=== PATIENT | male | born 1950 | race Caucasian/White ===

== ENCOUNTER 2019-02-02 13:45 | Inpatient (IN) ==
[2019-02-02] MEDS ORDERED: Td (TENIVAC) Vaccine 0.5 ML VIAL IM ONE (14:59)
[2019-02-02] MEDS ORDERED: Acetaminophen 325 MG TABLET PO ONE (14:59)
[2019-02-02] MEDS ORDERED: Ampicillin/Sulbactam 3,000 MG in D5% in Water (Mini-Bag+) 100 ML IVPB ONE (14:59)
[2019-02-02] MEDS ORDERED: 0.9 % Sodium Chloride 1,000 ML IVC ONE (14:59)
[2019-02-02] MEDS ORDERED: Vancomycin 1,000 MG VIAL IVPB ONE (14:59)
--- NOTE | 2019-02-02 15:09 | Emergency Department Note ---
Disposition Clinical Impression: Cellulitis Disposition: Home, Self-Care Condition: Good Time of Disposition: 16:07 Skin/Abscess/FB HPI Chief complaint: ED Skin/Abscess/Foreign Body Stated complaint: infection to left arm Time Seen by Provider: 02/02/19 15:00 Source: patient Mode of arrival: ambulatory Limitations: no limitations Nursing Notes Reviewed: Yes Vital Signs Reviewed: Yes HPI Narrative: 68-year-old male brought in today by family after going to urgent care we told to come up here for his left arm cellulitis. His left forearm. He states tonight every 3 or 4 days. States it is getting worse pain rise and spreading. He states is a lot more swollen today. He states it feels very hot locally but he has not had fevers or chills and his body. He states he has an appointment to see his doctor on Thursday but he did not think he can wait that long. His numbness or tingling in his hand. He still able to use his left hand. He states that he is not really sure where it started originally. He does not neena mber any trauma or scratching of the area. He is not a diabetic. Patient is on Eliquis for A. fib. Pt Subjective Complaint: abscess/boil Home Medications Medication Instructions Recorded Confirmed Apixaban [Eliquis] 5 mg PO BID 02/02/19 02/02/19 Atenolol 100 mg PO DAILY 02/02/19 02/02/19 Atorvastatin Calcium [Lipitor] 80 mg PO HS 02/02/19 02/02/19 Lisinopril/Hydrochlorothiazide 1 each PO DAILY 02/02/19 02/02/19 [Zestoretic 10-12.5 mg Tablet] Loratadine [Claritin] 10 mg PO DAILY 02/02/19 02/02/19 levETIRAcetam [Roweepra Xr] 500 mg PO BID 02/02/19 02/02/19 Allergies Allergy/AdvReac Type Severity Reaction Status Date / Time No Known Allergies Allergy Unverified 10/26/18 11:28 Review of Systems: All other systems are negative except as noted/marked Chart generated with voice recognition software Nursing notes reviewed Old records reviewed Past Medical History - Past Medical History Attestation: Yes The following information was validated with the patient. Source: patient, old records reviewed, nursing notes reviewed Medical history: Reports: atrial fibrillation, cancer, hyperlipidemia, hypertension, other Psychiatric history: Reports: no psych history - Social History Smoking Status: Former smoker Smokeless Tobacco Status: No Alcohol use: Reports: rarely Drug use: Reports: none Physical Exam - General Limitations: no limitations General appearance: alert - Head Head exam: atraumatic, normocephalic, normal inspection - Eye Eye exam: Present: normal appearance, PERRL, EOMI - ENT ENT exam: normal exam, normal oropharynx, mucous membranes moist - Neck Neck exam: Present: normal inspection, full ROM, trachea midline - Chest Chest inspection: Present: normal inspection, symmetric chest wall rise - Respiratory Respiratory exam: Present: normal lung sounds bilaterally - Cardiovascular Cardiovascular exam: Present: regular rate, normal rhythm, normal heart sounds - Expanded Upper Extremity Exam Shoulder exam: Present: normal inspection, full ROM Arm exam: Present: normal inspection, full ROM Elbow exam: Present: full ROM, tenderness, erythema. Absent: crepitus Forearm/Wrist exam: Present: full ROM, swelling, abrasion, erythema, other (enduration over lateral arm, some oozing of blood, no purulent drainage). Absent: crepitus, tenderness over anatomical snuff box, pain with axial thumb loading Neuromotor exam: Normal: wrist extension, thumb opposition, thumb IP flexion, thumb adduction, fingers 2-5 abduction Neurosensory exam: Normal: radial nerve, ulnar nerve Vascular exam: Normal: capillary refill - Neurological Exam Neurological exam: Present: alert, oriented X3, CN II-XII intact - Psychiatric Psychiatric exam: Present: normal affect, normal mood - Skin Skin exam: Present: warm, dry, intact Course Vital Signs Temperature 98.3 F 02/02/19 13:46 Pulse Rate 91 02/02/19 13:46 Respiratory Rate 17 02/02/19 13:46 Blood Pressure 109/78 02/02/19 13:46 O2 Sat by Pulse Oximetry 95 02/02/19 13:46 Temperature 98.3 F 02/02/19 13:46 Pulse Rate 87 02/02/19 15:48 Respiratory Rate 18 02/02/19 15:48 Blood Pressure 117/80 02/02/19 15:48 O2 Sat by Pulse Oximetry 98 02/02/19 15:48 Oxygen Delivery Oxygen Delivery Room Air Skin/Abscess/Foreign Body - MDM Narrative Medical decision making narrative: 68-year-old male who presents today with left arm swelling induration and warmth for the last 3-4 days. Is very concerning as follows arm. We started early with antibiotic therapy. I did think that he would benefit from being in the hospital on IV antibiotic is given the induration. I did not appreciate any fluctuance at this time therefore I did not drain any abscess x-rays did not show any gas and no concern for neck fashion at this time. Certainly after antibiotics for a while he may improve and could go home. He is to keep the arm elevated we started this process in the ER. I did noted patient notify the patient's at his request and she is aware that he will be admitted tonight. Dr. Carnes agrees with the recommendation for admission. - Medical Records Medical records reviewed: Yes I reviewed the patient's medical records. - Lab Data Lab results reviewed: Yes I reviewed the patient's lab results. Result diagrams: 02/02/19 15:18 02/02/19 15:18 Lab Results 02/02/19 02/02/19 02/02/19 Range/Units 15:18 15:18 15:18 WBC 16.3 H (4.3-11.1) K/mcL RBC 4.91 (4.19-5.50) M/mcL Hgb 14.2 (12.9-16.9) g/dL Hct 42.0 (37.5-50.1) % MCV 85.5 (83.0-100.0) fL MCH 28.9 (28.0-33.3) pg MCHC 33.8 (31.6-35.5) g/dL RDW 13.5 (11.5-14.5) % Plt Count 317 (140-400) K/mcL MPV 10.4 (9.4-12.4) fL Immature Gran % 0.7 (0-4) % Seg Neutrophils % 81.5 % Lymphocytes % 8.7 % Monocytes % 7.5 % Eosinophils % 1.0 % Basophils % 0.6 % Neutrophils # 13.3 H (1.6-8.9) K/mcL Lymphocytes # 1.4 (0.6-4.6) K/mcL Monocytes # 1.2 (0.0-1.3) K/mcL Eosinophils # 0.2 (0.0-0.6) K/mcL Basophils # 0.1 (0.0-0.2) K/mcL Sodium 138 (136-145) mEq/L Potassium 4.1 (3.5-5.1) mEq/L Chloride 103 (98-107) mEq/L Carbon Dioxide 27 (23-29) mEq/L BUN 22 (8-23) mg/dL Creatinine 0.92 (0.70-1.30) mg/dL Est GFR ( Amer) > 60 (> 60) Est GFR (Non-Af Amer) > 60 (> 60) BUN/Creatinine Ratio 24 (6-26) Glucose 119 H (70-105) mg/dL Calculated Osmolality 290 (280-300) Lactic Acid 1.0 (0.5-2.2) mmol/L Calcium 10.2 (8.6-10.3) mg/dL - Radiology Data Radiology results reviewed: Yes I reviewed the patient's radiology results. EXAMINATION: 3 XRAY VIEWS OF THE LEFT ELBOW; 2 XRAY VIEWS OF THE LEFT FOREARM 02/02/2019 3:47 pm COMPARISON: None. HISTORY: ORDERING SYSTEM PROVIDED HISTORY: abscess r/o free air FINDINGS: No acute fracture or dislocation noted. Induration of the subcutaneous tissues of the forearm and elbow is noted with mild soft tissue swelling. No radiopaque foreign body or subcutaneous emphysema is noted. Osseous structures demonstrate no acute abnormality. Moderate degenerative changes at the 1st carpometacarpal joint noted, incompletely evaluated. XR/XR forearm LT IMPRESSION: Soft tissue swelling overlying the left elbow and extending along the forearm without evidence of subcutaneous emphysema or radiopaque foreign body No acute osseous abnormality noted D/ / 02/02/2019 15:51:08 Jose A Delaney MD / singh Interpreting Provider: Jose A Delaney MD
[2019-02-02 15:26] LABS: Basophils # 0.1 K/mcL (0.0-0.2); Basophils % 0.6 %; Eosinophils # 0.2 K/mcL (0.0-0.6); Hemoglobin 14.2 g/dL (12.9-16.9); Immature Granulocytes % 0.7 % (0-4); Lymphocytes # 1.4 K/mcL (0.6-4.6); Lymphocytes % 8.7 %; Mean Corpuscular HGB Conc 33.8 g/dL (31.6-35.5); Mean Corpuscular Hemoglobin 28.9 pg (28.0-33.3); Mean Corpuscular Volume 85.5 fL (83.0-100.0); Mean Platelet Volume 10.4 fL (9.4-12.4); Monocytes # 1.2 K/mcL (0.0-1.3); Monocytes % 7.5 %; Neutrophils # 13.3 K/mcL (1.6-8.9); Platelet Count 317 K/mcL (140-400); Red Blood Count 4.91 M/mcL (4.19-5.50); Red Cell Distribution Width 13.5 % (11.5-14.5); Segmented Neutrophils % 81.5 %
[2019-02-02 15:40] LABS: BUN/Creatinine Ratio 24 (6-26); Blood Urea Nitrogen 22 mg/dL (8-23); Calcium 10.2 mg/dL (8.6-10.3); Carbon Dioxide 27 mEq/L (23-29); Chloride 103 mEq/L (98-107); Glucose 119 mg/dL (70-105); Osmolality,Calculated 290 (280-300); Potassium 4.1 mEq/L (3.5-5.1); Sodium 138 mEq/L (136-145); eGFR For Non-African Americans > 60 (> 60)
[2019-02-02] MEDS ORDERED: MOM Conc 10 ML UD.LIQ PO PRN (16:12)
[2019-02-02] MEDS ORDERED: *HR* HYDROcodone/Acet 5/325 mg TABLET PO PRN (16:12)
[2019-02-02] MEDS ORDERED: Mag Hydrox/Al Hydrox/Simeth 30 ML UDC PO PRN (16:12)
[2019-02-02] MEDS ORDERED: Naloxone 0.4 MG/ML INJ IVP PRN ×2 (16:12)
[2019-02-02] MEDS ORDERED: Acetaminophen 325 MG TABLET PO PRN (16:12)
[2019-02-02] MEDS ORDERED: Ondansetron 4 MG/2 ML VIAL IVP PRN (16:12)
[2019-02-02] MEDS: levETIRAcetam 250 MG TABLET PO SCH (20:39)
[2019-02-02] MEDS: Apixaban 5 MG TABLET PO SCH (20:39)
[2019-02-03 06:18] LABS: Basophils # 0.1 K/mcL (0.0-0.2); Basophils % 0.7 %; Eosinophils # 0.4 K/mcL (0.0-0.6); Eosinophils % 3.3 %; Hemoglobin 14.2 g/dL (12.9-16.9); Immature Granulocytes % 0.6 % (0-4); Lymphocytes # 1.2 K/mcL (0.6-4.6); Lymphocytes % 11.4 %; Mean Corpuscular HGB Conc 32.3 g/dL (31.6-35.5); Mean Corpuscular Hemoglobin 29.1 pg (28.0-33.3); Mean Corpuscular Volume 90.2 fL (83.0-100.0); Mean Platelet Volume 10.9 fL (9.4-12.4); Monocytes # 0.7 K/mcL (0.0-1.3); Monocytes % 6.8 %; Neutrophils # 8.4 K/mcL (1.6-8.9); Platelet Count 237 K/mcL (140-400); Red Blood Count 4.88 M/mcL (4.19-5.50); Red Cell Distribution Width 13.3 % (11.5-14.5); Segmented Neutrophils % 77.2 %
[2019-02-03 06:40] LABS: Alanine Aminotransferase 15 Units/L (7-52); Albumin 3.5 g/dL (3.5-5.7); Albumin/Globulin Ratio 1.4 (1.1-2.2); Alkaline Phosphatase 56 Units/L (34-104); Aspartate Amino Transferase 14 Units/L (13-39); BUN/Creatinine Ratio 24 (6-26); Bilirubin,Total 0.9 mg/dL (0.3-1.0); Blood Urea Nitrogen 18 mg/dL (8-23); Calcium 9.2 mg/dL (8.6-10.3); Carbon Dioxide 23 mEq/L (23-29); Chloride 106 mEq/L (98-107); Globulin 2.5 g/dL (2.4-3.5); Glucose 103 mg/dL (70-105); Magnesium 1.8 mg/dL (1.6-2.6); Osmolality,Calculated 284 (280-300); Sodium 136 mEq/L (136-145); eGFR For Non-African Americans > 60 (> 60)
[2019-02-03] MEDS: Apixaban 5 MG TABLET PO SCH ×2 (09:17→20:39)
[2019-02-03] MEDS: Loratadine 10 MG TABLET PO SCH (09:17)
[2019-02-03] MEDS: levETIRAcetam 250 MG TABLET PO SCH ×2 (09:17→20:39)
--- NOTE | 2019-02-03 11:44 | Internal Med History&Physical ---
Date of Encounter: 02/03/19 Time of Encounter: 11:05 Assessment and Plan (1) Abscess Current visit: Yes Status: Acute Wound culture was ordered emergency room. He was given IV vancomycin and Unasyn in ER. Vancomycin will be continued with lactobacillus. IV Clindamycin will be ordered pending final culture report. Arm CT will be done to further evaluate abscess. (2) Atrial fibrillation Current visit: Yes Status: Chronic Continue Eliquis and atenolol. Qualifiers: Atrial fibrillation type: chronic Qualified Code(s): I48.2 - Chronic atrial fibrillation (3) Hypertension Current visit: Yes Status: Chronic Continue atenolol and lisinopril/HCTZ. Qualifiers: Hypertension type: essential hypertension Qualified Code(s): I10 - Essential (primary) hypertension (4) Seizure disorder Current visit: Yes Status: Chronic Continue Levatiracetam Internal Medicine - H&P: HPI Chief complaint: Left arm infection Admitted From: Emergency Dept Plans for Post Hospital Care: Home History of present illness: Mr. Boyce is a 68 year old male who was sent to emergency room from a local urgent care after he presented with increased pain redness and swelling in his left arm onset 3-4 days previously. He was given IV antibiotics and ER for diagnosis of cellulitis and was admitted to [facility] floor for ongoing care need s. He states he noticed 3-4 lesions he felt were possibly bug bites shortly after onset of symptoms. There was no drainage from the bites. He denies fevers or chills. Past Med Surg Social Fam HX - Past Medical History Medical history: atrial fibrillation, cancer, hyperlipidemia, hypertension, other Additional medical history: Hx of staring episodes Psychiatric history: no psych history - Past Surgical History Additional surgical history: prostate cancer with treatment - Social History Smoking Status: Former smoker Smokeless Tobacco Status: No Alcohol use: rarely Drug use: none Internal Medicine - H&P: Meds Apixaban [Eliquis] 5 mg PO BID 02/02/19 [History] Atenolol 100 mg PO DAILY 02/02/19 [History] Atorvastatin Calcium [Lipitor] 80 mg PO HS 02/02/19 [History] Lisinopril/Hydrochlorothiazide [Zestoretic 10-12.5 mg Tablet] 1 each PO DAILY 02/02/19 [History] Loratadine [Claritin] 10 mg PO DAILY 02/02/19 [History] levETIRAcetam [Roweepra Xr] 500 mg PO BID 02/02/19 [History] Allergy/AdvReac Type Severity Reaction Status Date / Time No Known Allergies Allergy Unverified 10/26/18 11:28 All Systems PM: A 10-system review of systems was performed and is negative for pertinent findings except as documented above in the HPI. Review of systems: Gen.: He states his weight has been stable for several months Cardiovascular: He has history of hypertension and chronic atrial fibrillation. He denies heart failure [place] angina DVT or pulmonary embolism. Echocardiogram 10/26/2018 showed LVEF of 60%. There was indeterminate diastolic function assessment due to atrial fibrillation. There was LAE at 4.40 cm. Intraventricular septum and posterior wall thickness measurements were 1.41 and 0.98 cm respectively. There was mild tricuspid regurgitation. Respiratory: He is a lifelong nonsmoker and denies chronic lung disease GI: He denies disorders of his liver gallbladder or exocrine pancreas : He had prostate CA and underwent TUR resection followed by XRT approximately 2014. He has no significant residual BPH symptoms. He denies other disorders of his kidney or bladder Neurologic: He reports seizures onset in childhood. His most recent seizure was approximately 6 months ago. 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 Endocrine: He has hyperlipidemia but denies diabetes or thyroid disease Hematology/oncology: He had prostate CA as per above. He denies other internal malignancies or anemia. Psychiatric: He denies anxiety depression or other mental health issues [place] skeletal: He denies arthritis gout or other bone joint or muscle disorders - Constitutional Vitals: Temp Pulse Resp BP Pulse Ox 97.6 F 71 16 111/79 95 02/03/19 10:26 02/03/19 10:26 02/03/19 10:26 02/03/19 10:26 02/03/19 10:26 Exam: Gen.: He is well-developed well-nourished male lying in bed who appears in no acute distress HEENT: Head is atraumatic and normocephalic. Eyes: EOMI. There is no scleral icterus. Mouth: Mucosa is moist. Neck: Supple and nontender. There is no thyromegaly or adenopathy noted. Heart: Irregularly irregular without murmurs or gallops. Lungs: No wheezes or crackles are heard. Abdomen: Soft and nontender. No masses or guarding are noted. Extremities: He has swelling and slight erythema of the left arm. There is a ~2 mm open area in the proximal flexor left forearm with purulent material expressed on compression on the surrounding area. Feet show no cyanosis edema or clubbing noted. Dorsalis pedis and posterior tibial pulses are 2 over 2 bilaterally. Neurologic: Mental status: He is talkative and a good historian. Cranial nerves: Smile is symmetric. Forehead wrinkles bilaterally. Tongue protrudes midline. EOMI. Motor: There is no pronator drift. Cerebellar: Finger to nose is intact bilaterally. Skin: Warm and dry Internal Med - H&P Results - Labs CBC & Chem 7: 02/03/19 06:07 02/03/19 06:07 Labs: Short CBC 02/02/19 02/03/19 Range/Units 15:18 06:07 WBC 16.3 H 10.9 (4.3-11.1) K/mcL Hgb 14.2 14.2 (12.9-16.9) g/dL Hct 42.0 44.0 (37.5-50.1) % Plt Count 317 237 (140-400) K/mcL Neutrophils # 13.3 H 8.4 (1.6-8.9) K/mcL BMP 02/02/19 02/03/19 15:18 06:07 Sodium 138 136 Potassium 4.1 4.0 Chloride 103 106 Carbon Dioxide 27 23 BUN 22 18 Creatinine 0.92 0.75 Glucose 119 H 103 Calcium 10.2 9.2 Liver Function 02/03/19 Range/Units 06:07 Total Bilirubin 0.9 (0.3-1.0) mg/dL AST 14 (13-39) Units/L ALT 15 (7-52) Units/L Alkaline Phosphatase 56 (34-104) Units/L Albumin 3.5 (3.5-5.7) g/dL - Impressions ITS Impressions Elbow X-Ray 02/02/19 15:02 IMPRESSION: Soft tissue swelling overlying the left elbow and extending along the forearm without evidence of subcutaneous emphysema or radiopaque foreign body No acute osseous abnormality noted D/ / 02/02/2019 15:51:08 Jose A Delaney MD / lana Interpreting Provider: Jose A Delaney MD Forearm X-Ray 02/02/19 15:02
[2019-02-03] MEDS: Clindamycin 900 MG/50 ML 900 MG/50 ML IV.SOLN IVPB SCH ×3 (13:03→20:40)
[2019-02-03] MEDS: Lactobacillus 1 EACH CAP.SPRINK PO SCH (20:39)
[2019-02-04] MEDS: Clindamycin 900 MG/50 ML 900 MG/50 ML IV.SOLN IVPB SCH ×3 (04:01→19:31)
[2019-02-04 06:27] LABS: Basophils % 0.5 %; Eosinophils # 0.5 K/mcL (0.0-0.6); Eosinophils % 6.2 %; Hematocrit 37.6 % (37.5-50.1); Hemoglobin 12.4 g/dL (12.9-16.9); Immature Granulocytes % 0.7 % (0-4); Lymphocytes # 1.1 K/mcL (0.6-4.6); Lymphocytes % 13.7 %; Mean Corpuscular Hemoglobin 28.2 pg (28.0-33.3); Mean Corpuscular Volume 85.5 fL (83.0-100.0); Mean Platelet Volume 10.9 fL (9.4-12.4); Monocytes # 0.6 K/mcL (0.0-1.3); Monocytes % 7.6 %; Neutrophils # 5.7 K/mcL (1.6-8.9); Platelet Count 271 K/mcL (140-400); Red Cell Distribution Width 13.2 % (11.5-14.5); Segmented Neutrophils % 71.3 %
[2019-02-04 06:50] LABS: BUN/Creatinine Ratio 21 (6-26); Blood Urea Nitrogen 14 mg/dL (8-23); Calcium 8.9 mg/dL (8.6-10.3); Carbon Dioxide 23 mEq/L (23-29); Chloride 106 mEq/L (98-107); Glucose 115 mg/dL (70-105); Osmolality,Calculated 283 (280-300); Potassium 3.5 mEq/L (3.5-5.1); Sodium 136 mEq/L (136-145); eGFR For Non-African Americans > 60 (> 60)
[2019-02-04] MEDS: Lactobacillus 1 EACH CAP.SPRINK PO SCH ×2 (08:28→19:31)
[2019-02-04] MEDS: Apixaban 5 MG TABLET PO SCH ×2 (08:28→19:31)
[2019-02-04] MEDS: levETIRAcetam 250 MG TABLET PO SCH ×2 (08:29→19:31)
[2019-02-04] MEDS: Loratadine 10 MG TABLET PO SCH (08:29)
--- NOTE | 2019-02-04 10:11 | Internal Med Progress Note ---
Date of Encounter: 02/04/19 Time of Encounter: 10:05 - Assessment and plan (1) Abscess Current Visit: Yes Status: Acute Assessment and plan: February 04. Presumptive MRSA per culture report. Continue IV vancomycin and clindamycin with lactobacillus. (2) Atrial fibrillation Current Visit: Yes Status: Chronic Assessment and plan: February 04. Continue Eliquis and atenolol Qualifiers: Atrial fibrillation type: chronic Qualified Code(s): I48.2 - Chronic atrial fibrillation (3) Hypertension Current Visit: Yes Status: Chronic Assessment and plan: February 04. Continue atenolol and lisinopril/HCTZ. Qualifiers: Hypertension type: essential hypertension Qualified Code(s): I10 - Essential (primary) hypertension (4) Seizure disorder Current Visit: Yes Status: Chronic Assessment and plan: February 04. Continue Keppra - Subjective Interval history: February 04. He has no new complaints and feels better. - Constitutional Vitals: Temp Pulse Resp BP Pulse Ox 97.9 F 67 22 122/82 95 02/04/19 07:34 02/04/19 07:34 02/04/19 07:34 02/04/19 07:34 02/04/19 07:34 Exam: He is resting comfortably in bed. His left arm shows decreased swelling and erythema. A small amount of sanguinous purulence was expressed from the left forearm opening. The quantity was significantly less than yesterday. I reviewed his CT report. Internal Medicine: Result - Labs CBC & Chem 7: 02/04/19 05:54 02/04/19 05:54 Labs: Short CBC 02/04/19 Range/Units 05:54 WBC 8.0 (4.3-11.1) K/mcL Hgb 12.4 L D (12.9-16.9) g/dL Hct 37.6 (37.5-50.1) % Plt Count 271 (140-400) K/mcL Neutrophils # 5.7 (1.6-8.9) K/mcL BMP 02/04/19 05:54 Sodium 136 Potassium 3.5 Chloride 106 Carbon Dioxide 23 BUN 14 Creatinine 0.66 L Glucose 115 H Calcium 8.9 - Impressions Impressions Upper Extremity CT 02/03/19 11:32 IMPRESSION: 1. Pronounced subcutaneous edema with associated skin thickening. Correlate clinically for cellulitis. No discrete organized drainable fluid collection identified within limits of this noncontrast exam. No subcutaneous gas identified. 2. No acute osseous abnormality and no CT evidence for osteomyelitis. 3. 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 D/ / Link Garcia MD / Link Garcia MD Interpreting Provider: Link Garcia MD Consult Discharge Plan - Plan Referrals: Francie Khan MD [Primary Care Provider] - 1 week
[2019-02-05] MEDS: Clindamycin 900 MG/50 ML 900 MG/50 ML IV.SOLN IVPB SCH ×2 (04:31→12:53)
[2019-02-05] MEDS: Lactobacillus 1 EACH CAP.SPRINK PO SCH (08:13)
[2019-02-05] MEDS: Loratadine 10 MG TABLET PO SCH (08:13)
[2019-02-05] MEDS: Apixaban 5 MG TABLET PO SCH (08:13)
[2019-02-05] MEDS: levETIRAcetam 250 MG TABLET PO SCH (08:13)
[2019-02-05] MEDS ORDERED: Aminoglycoside Consult 1 EACH MC ONE (13:15)
[2019-02-05 15:39] VITALS: BP 120/82
--- NOTE | 2019-02-05 15:52 | Discharge Summary ---
Orders not resulted at time of discharge: Pending orders 02/02/19 15:26 Culture,Blood [BC] Stat 02/02/19 16:20 Culture,Wound [RM] Stat Date of Encounter: 02/05/19 Time of Encounter: 15:40 - Discharge Diagnosis (1) Abscess Priority: Primary Status: Acute (2) Atrial fibrillation Priority: Secondary Status: Chronic Qualifiers: Atrial fibrillation type: chronic Qualified Code(s): I48.2 - Chronic atrial fibrillation (3) Hypertension Priority: Secondary Status: Chronic Qualifiers: Hypertension type: essential hypertension Qualified Code(s): I10 - Essential (primary) hypertension (4) Seizure disorder Priority: Secondary Status: Chronic Hospital course: Mr. Boyce is a 68 year old male who was sent to emergency room from a local urgent care after he presented with increased pain redness and swelling in his left arm onset 3-4 days previously. He was given IV antibiotics and ER for diagnosis of cellulitis and was admitted to [facility] floor for ongoing care needs. Initial orders were written by the emergency room physician. I saw him on February 03 and performed the history and physical. He was given IV vancomycin and Unasyn in emergency room. I changed Unasyn to IV clindamycin pending final culture report. Wound culture grew MRSA. CT of the left arm showed no evidence of abscess. There was significant decrease in inflammation during hospitalization with no purulence expressed from wound margin compression on the day of discharge. He remained afebrile through his hospital stay. The WBC decreased to 8.0 on February 04 with resolution of left shift. He will continue with oral antibiotic and probiotic for 5 additional days at discharge. He declined home health services. He agreed to come to the hospital daily for wound dressing with Santyl and gentamicin cream and covered with gauze. No packing is needed. He will follow with his PCP Dr. Khan within 1 week. - Time Spent with Patient Total time spent providing and/or coordinating discharge services: - Discharge Medications Prescriptions: New Sulfamethoxazole/Trimeth DS [Bactrim DS] 1 each PO BID #10 tablet Lactobacillus [Culturelle] 1 each PO BID #10 cap.sprink Doxycycline 100 mg PO BID #10 capsule Continued Lisinopril/Hydrochlorothiazide [Zestoretic 10-12.5 mg Tablet] 1 each PO DAILY levETIRAcetam [Roweepra Xr] 500 mg PO BID Atorvastatin Calcium [Lipitor] 80 mg PO HS Atenolol 100 mg PO DAILY Apixaban [Eliquis] 5 mg PO BID Loratadine [Claritin] 10 mg PO DAILY Home Medications: Apixaban [Eliquis] 5 mg PO BID 02/02/19 [History] Atenolol 100 mg PO DAILY 02/02/19 [History] Atorvastatin Calcium [Lipitor] 80 mg PO HS 02/02/19 [History] Lisinopril/Hydrochlorothiazide [Zestoretic 10-12.5 mg Tablet] 1 each PO DAILY 02/02/19 [History] Loratadine [Claritin] 10 mg PO DAILY 02/02/19 [History] levETIRAcetam [Roweepra Xr] 500 mg PO BID 02/02/19 [History] Doxycycline 100 mg PO BID #10 capsule 02/05/19 [Rx] Lactobacillus [Culturelle] 1 each PO BID #10 cap.sprink 02/05/19 [Rx] Sulfamethoxazole/Trimeth DS [Bactrim DS] 1 each PO BID #10 tablet 02/05/19 [Rx] Allergies/Adverse Reactions: Allergy/AdvReac Type Severity Reaction Status Date / Time No Known Allergies Allergy Unverified 10/26/18 11:28 Date of admission: 02/04/19 10:09 Primary care physician: Francie Khan - Constitutional Vitals: Temp Pulse Resp BP Pulse Ox 98.3 F 64 18 120/82 98 02/05/19 15:33 02/05/19 15:33 02/05/19 15:33 02/05/19 15:33 02/05/19 15:33 - Patient Status Disposition: Home, Self-Care Condition: Good - Discharge Instructions Follow Up With: Francie Khan MD [Primary Care Provider] - 1 week - Diet and Activity Activity: resume usual activities as tolerated Diet: advance to your usual diet
[2019-02-05] MEDS ORDERED: Gentamicin Oint 15 GM TUBE TP SCH (16:45)
== END 2019-02-05 17:58 | disposition home or self-care (01) | DRG 603 ==
LOC: EMEROOPIK 13:45 → INPPIK 13:45
PROVIDERS: ADMIT Internal Medicine; ATTEND Internal Medicine